=== PATIENT | male | born 1950 | race Caucasian/White ===

== ENCOUNTER 2016-12-11 10:36 | Emergency (ER) | payer BC ==
[2016-12-11] MEDS ORDERED: Tetan/Diph/Pertus SYR(Tdap)* 0.5 ML SYR(BOOSTRIX) use SYR IM ONE (11:06)
--- NOTE | 2016-12-11 12:24 | UC ---
Skin Complaint HPI - HPI Summary HPI Summary: Patient presents to with CC of redness, swelling and warmth to the lateral side of the right foot. He states he stepped on his dogs bone 4-5 days ago on the plantar surface of the foot with a 2cm abrasion noted without redness or warmth. However, the next afternoon he noticed the area was more irritated, red and warm. He has been using warm soaks with bleach x3 days. Swelling has improved, but the surrounding erythema has become worse. He is concerned of infection. Denies aches, sweats or chills. - History of Current Complaint Chief Complaint: UCLowerExtremity Time Seen by Provider: 12/11/16 11:06 Stated Complaint: SOFT TISSUE COMPLAINT Hx Obtained From: Patient Onset/Duration: Sudden Onset Timing: Constant Onset Severity: Moderate Pain Intensity: 0 Pain Scale Used: 0-10 Numeric Location: Foot (Right) Character: Swelling, Pain, Redness Aggravating: Nothing Alleviating: Cold Associated Signs & Symptoms: Positive: Tenderness Related History: Trauma - Allergy/Home Medications Allergies/Adverse Reactions: Allergies Allergy/AdvReac Type Severity Reaction Status Date / Time No Known Allergies Allergy Verified 12/11/16 10:55 Review of Systems Constitutional: Negative Skin: Other - lateral right side of foot with warmth and redness Eyes: Negative ENT: Negative Respiratory: Negative Cardiovascular: Negative Neurovascular: Negative Musculoskeletal: Negative Neurological: Negative Psychological: Negative All Other Systems Reviewed And Are Negative: Yes PMH/Surg Hx/FS Hx/Imm Hx Previously Healthy: Yes - Surgical History Surgical History: Yes Surgery Procedure, Year, and Place: hernia - Family History Known Family History: Positive: Unknown - Social History Occupation: Employed Full-time Lives: With Family Alcohol Use: Rare Substance Use Type: None Smoking Status (MU): Never Smoked Tobacco Physical Exam Triage Information Reviewed: Yes Appearance: Well-Appearing, No Pain Distress, Well-Nourished Vital Signs: Initial Vital Signs Temp 97.6 F 12/11/16 10:50 Pulse 77 12/11/16 10:50 Resp 20 12/11/16 10:50 BP 159/80 12/11/16 10:50 Pulse Ox 100 12/11/16 10:50 Vital Signs Reviewed: Yes Eye Exam: Normal Eyes: Positive: Conjunctiva Clear Neck exam: Normal Neck: Positive: Supple, Nontender, No Lymphadenopathy Respiratory: Positive: Chest non-tender, Lungs clear Cardiovascular: Positive: RRR Musculoskeletal Exam: Normal Musculoskeletal: Positive: Strength Intact Neurological Exam: Normal Neurological: Positive: Alert Psychological: Positive: Normal Response To Family Skin: Positive: Other - lateral right side of foot with warmth and rednes Course/Dx - Course Course Of Treatment: Patient presents s/p injury to the plantar surface of the right foot with no CC of lateral right side of foot with warmth and redness. Denies aches, sweats or chills. Denies numbness or tingling. Pulses +2 intact bilaterally. Keflex given for cellulitis. Patients high blood pressure was noted. Advised to follow up next week for BP check up. Medications were reviewed with patient. Patient agrees to follow up with PCP and is OK with discharge plan. - Differential Diagnoses - Skin Complaint Differential Diagnoses: Abscess, Cellulitis, Other - laceration - Diagnoses Provider Diagnoses: Cellulitis Discharge - Discharge Plan Condition: Stable Disposition: HOME Prescriptions: Cephalexin CAP* [Keflex CAP*] 500 mg PO QID #28 cap MDD 4 Patient Education Materials: Cellulitis (ED) Referrals: No Primary Care Phys,NOPCP [Primary Care Provider] - Additional Instructions: Follow up with PCP. If you develop worsening signs of infection, such as red streaking, warmth or drainage from the area - come back to . Keflex prescribed to you. Images Feet (Multiple View): 1 - redness and warmth
== END 2016-12-11 11:37 | disposition home or self-care (01) ==
LOC: UCEAST 10:36
DX: L03.115 Cellulitis of right lower limb (principal); W22.8XXA Striking against or struck by other objects, initial encounter; Y93.01 Activity, walking, marching and hiking; Y92.009 Unspecified place in unspecified non-institutional (private) residence as the place of occurrence of the external cause; Y99.9 Unspecified external cause status; R03.0 Elevated blood-pressure reading, without diagnosis of hypertension
CPT/HCPCS: 90715; 99202; G0463

== ENCOUNTER 2020-09-18 13:42 | Observation (INO) ==
[2020-09-18 14:42] LABS: ABS Lymphocytes 1.3 10^3/ul (1.0-4.8); ABS Monocytes 1.2 10^3/ul (0-0.8); ABS Neutrophils 17.9 10^3/ul (1.5-7.7); Eosinophil % 0.1 %; Hematocrit 48 % (42-52); Hemoglobin 16.6 g/dL (14.0-18.0); Lymphocyte % 6.3 %; Mean Corpuscular HGB Conc 35 g/dL (31-36); Mean Corpuscular Hemoglobin 32 pg (27-31); Mean Corpuscular Volume 93 fL (80-94); Mean Platelet Volume 7.4 fL (7.4-10.4); Platelet Count 328 10^3/uL (150-450); Red Blood Count 5.22 10^6 /uL (4.18-5.48); Red Cell Distribution Width 13 % (10-15); White Blood Count 20.5 10^3/uL (3.5-10.8)
[2020-09-18] MEDS ORDERED: Lorazepam PYXIS KEY PRN (14:53)
[2020-09-18] MEDS ORDERED: LORazepam 2 mg VIAL 1 ml IV ONE (14:53)
[2020-09-18] MEDS ORDERED: Ondansetron 4 mg VIAL 2 MG/ML 2 ml VIAL IV ONE (14:53)
[2020-09-18] MEDS ORDERED: HYDROmorphone 1 MG/1 ML SYRINGE IV ONE (14:53)
[2020-09-18 14:58] LABS: Potassium 3.8 mmol/L (3.5-5.0)
[2020-09-18 14:59] LABS: BUN/Creatinine Ratio 17.5 (8-20); C Reactive Protein 4.49 mg/L (<8.01); Calcium 10.2 mg/dL (8.6-10.3); EGFR African American 62.2 (>60); EGFR Non-African American 51.4 (>60)
[2020-09-18] MEDS ORDERED: Lorazepam PYXIS KEY ONE (15:04)
[2020-09-18] MEDS ORDERED: Piperacillin/Tazobac ADVAN 3.375 GM in NS 0.9% 100 ml BAG 100 ML IVPB ONE (16:46)
[2020-09-18] MEDS ORDERED: NS 0.9% 1000 ml BAG 1,000 ML IV ONE (16:46)
[2020-09-18] MEDS ORDERED: Ondansetron 4 mg VIAL 2 MG/ML 2 ml VIAL IV PRN ×2 (17:30→20:12)
[2020-09-18] MEDS ORDERED: HYDROmorphone 0.5 MG/0.5 ML SYRINGE IV SLOW PU PRN (17:37)
[2020-09-18] MEDS ORDERED: D5W 1/2 NS KCl 20 meq 1000 ml 1,000 ML IV SCH (18:00)
[2020-09-18] MEDS ORDERED: Iodixanol (CONTRAST) 320 MG/ML 100 ML SDV IV ONE (18:08)
[2020-09-18] MEDS ORDERED: Midazolam 5 mg/5 ml VIAL 1 mg/ml 5 ml VIAL (5 mg) ONE (18:41)
[2020-09-18] MEDS ORDERED: Dexamethasone IV 4 MG/ML VIAL 1 ml VIAL ONE (18:41)
[2020-09-18] MEDS ORDERED: Lidocaine 2% PF 5 ML VIAL ONE (18:41)
[2020-09-18] MEDS ORDERED: fentaNYL 100 mcg/2 ml 50 MCG/ML VIAL ONE (18:41)
[2020-09-18] MEDS ORDERED: Propofol 10 MG/ML 20 ML BTL ONE (18:41)
[2020-09-18] MEDS ORDERED: Ondansetron 4 mg VIAL 2 MG/ML 2 ml VIAL ONE (18:41)
[2020-09-18] MEDS ORDERED: Rocuronium 50 mg VIAL 10 mg/ml 5 ml VIAL (50 mg) ONE (18:41)
[2020-09-18] MEDS ORDERED: Famotidine IV 10 MG/ML 2 ml VIAL (20 mg) ONE (18:58)
[2020-09-18] MEDS ORDERED: Bupivacaine 0.25% EPI 200,000 30 ML SDV ONE (19:25)
[2020-09-18] MEDS ORDERED: Lidocaine 1% VIAL 10 MG/ML VIAL ONE (19:25)
[2020-09-18] MEDS ORDERED: Phenylephrine 40 mcg/mL 10mL (400mcg) SYRINGE ONE (19:27)
[2020-09-18] MEDS ORDERED: EPHEDrine (Pressors) 50 MG/ML VIAL ONE (19:34)
[2020-09-18] MEDS ORDERED: Naloxone 0.4 mg VIAL 0.4 mg/ml 1 ml VIAL IV PRN (20:12)
[2020-09-18] MEDS ORDERED: fentaNYL 100 mcg/2 ml 50 MCG/ML VIAL IV PRN (20:12)
[2020-09-18] MEDS ORDERED: Piperacillin/Tazobactam VIAL 3.375 GM in NS 0.9% 100 ml BAG 100 ML IVPB SCH (21:00)
[2020-09-19] MEDS ORDERED: HYDROmorphone 0.5 MG/0.5 ML SYRINGE IV PRN (00:02)
[2020-09-19 06:13] LABS: ABS Monocytes 0.8 10^3/ul (0-0.8); ABS Neutrophils 9.1 10^3/ul (1.5-7.7); Hematocrit 40 % (42-52); Hemoglobin 13.5 g/dL (14.0-18.0); Lymphocyte % 9.1 %; Mean Corpuscular HGB Conc 34 g/dL (31-36); Mean Corpuscular Hemoglobin 32 pg (27-31); Mean Corpuscular Volume 93 fL (80-94); Mean Platelet Volume 7.5 fL (7.4-10.4); Platelet Count 236 10^3/uL (150-450); Red Blood Count 4.28 10^6 /uL (4.18-5.48); Red Cell Distribution Width 13 % (10-15); White Blood Count 10.9 10^3/uL (3.5-10.8)
[2020-09-19 06:32] LABS: BUN/Creatinine Ratio 21.7 (8-20); Calcium 8.6 mg/dL (8.6-10.3); EGFR African American 72.4 (>60); EGFR Non-African American 59.9 (>60); Potassium 4.3 mmol/L (3.5-5.0)
[2020-09-19] MEDS ORDERED: D5W 1/2 NS KCl 20 meq 1000 ml 1,000 ML IV SCH (09:05)
[2020-09-19] MEDS ORDERED: Calcium Carb (TUMS) 500 mg CHEW TAB PO PRN (19:28)
[2020-09-20 06:08] LABS: ABS Eosinophils 0.2 10^3/ul (0-0.6); ABS Lymphocytes 1.6 10^3/ul (1.0-4.8); ABS Monocytes 0.9 10^3/ul (0-0.8); ABS Neutrophils 5.5 10^3/ul (1.5-7.7); Hematocrit 38 % (42-52); Hemoglobin 13.2 g/dL (14.0-18.0); Lymphocyte % 19.1 %; Mean Corpuscular HGB Conc 35 g/dL (31-36); Mean Corpuscular Hemoglobin 32 pg (27-31); Mean Corpuscular Volume 93 fL (80-94); Mean Platelet Volume 7.3 fL (7.4-10.4); Platelet Count 210 10^3/uL (150-450); Red Blood Count 4.12 10^6 /uL (4.18-5.48); Red Cell Distribution Width 13 % (10-15); White Blood Count 8.1 10^3/uL (3.5-10.8)
[2020-09-20 06:24] LABS: BUN/Creatinine Ratio 14.5 (8-20); Calcium 8.6 mg/dL (8.6-10.3); EGFR African American 80.1 (>60); EGFR Non-African American 66.2 (>60); Potassium 4.3 mmol/L (3.5-5.0)
[2020-09-20 08:08] VITALS: BP 148/78
== END 2020-09-20 08:35 | disposition home or self-care (01) ==
LOC: ED 13:42 → SSU 19:06 → OR 19:06
PROVIDERS: ADMIT Surgery; ATTEND Surgery